=== PATIENT | male | born 1985 | race Caucasian/White ===

== ENCOUNTER 2018-11-19 15:43 | Emergency (ER) | payer OTHER ==
[~2018-11-19] VITALS: Ht 180.3 cm; Wt 65.8 kg
[2018-11-19] MEDS ORDERED: DELTASONE20 MG PO (17:47)
[2018-11-19] MEDS ORDERED: ZITHROMAX250 MG PO (17:47)
[2018-11-19] MEDS ORDERED: VENTOLIN HFA18 GM INH (17:47)
== END 2018-11-19 18:03 | disposition home or self-care (01) ==
LOC: ED 15:43
DX: J45.909 Unspecified asthma, uncomplicated (principal)
CPT/HCPCS: 71045; 87502; 94640; 99283-25; J7512

== ENCOUNTER 2019-06-20 14:17 | Emergency (ER) | payer OTHER ==
[~2019-06-20] VITALS: Ht 177.8 cm; Wt 68.0 kg
[~2019-06-20 14:17] MED LIST: DELTASONE20 MG PO; VENTOLIN HFA18 GM INH; ZITHROMAX250 MG PO
--- OUTSIDE RECORDS SUMMARY | 2019-06-20 14:20 | XMS ---
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 Calli has no Care Guidelines for this patient. Jhonathan VISIT COUNT (12 MO.) 1 [facility] [place] [address] [place] TOTAL 3 NOTE: Visits indicate total known visits. ED/UCC VISIT TRACKING (12 MO.) 06/20/2019 14:18 [facility] [place] TYPE: Emergency COMPLAINT: - RECTAL PAIN 03/16/2019 21:56 [facility] TYPE: Emergency COMPLAINT: - RECTAL PAIN 11/19/2018 15:[address] [facility] [place] TYPE: Emergency COMPLAINT: - COUGH/FEVER/VOMITING DIAGNOSES: - Cough - Unspecified asthma, uncomplicated INPATIENT VISIT TRACKING (12 MO.) No inpatient visits to display in this time frame [email or web address]
[2019-06-20] MEDS ORDERED: NORCO 5-325 TA1 EACH PO (14:57)
[2019-06-20] MEDS ORDERED: KEFLEX500 MG PO (14:57)
== END 2019-06-20 15:15 | disposition home or self-care (01) ==
LOC: ED 14:17
DX: K62.89 Other specified diseases of anus and rectum (principal); F17.200 Nicotine dependence, unspecified, uncomplicated
CPT/HCPCS: 99283

== ENCOUNTER 2019-06-22 16:14 | Observation (INO) | payer OTHER ==
[~2019-06-22] VITALS: Ht 177.8 cm; Wt 67.9 kg
[~2019-06-22 16:14] MED LIST changes: +KEFLEX500 MG PO; +NORCO 5-325 TA1 EACH PO
--- OUTSIDE RECORDS SUMMARY | 2019-06-22 16:16 | XMS ---
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 Calli has no Care Guidelines for this patient. Jhonathan [facility] [place] TOTAL 4 NOTE: Visits indicate total known visits. ED/UCC VISIT TRACKING (12 MO.) 06/22/2019 16:14 [facility] [place] TYPE: Emergency COMPLAINT: - RECTAL PAIN 06/20/2019 14:18 [facility] [place] TYPE: Emergency COMPLAINT: - RECTAL PAIN 03/16/2019 21:56 [facility] TYPE: Emergency COMPLAINT: - RECTAL PAIN 11/19/2018 15:44 [facility] [place] TYPE: Emergency COMPLAINT: - COUGH/FEVER/VOMITING DIAGNOSES: - Cough - Unspecified asthma, uncomplicated INPATIENT VISIT TRACKING (12 MO.) No inpatient visits to display in this time frame [email or web address]
--- NOTE | 2019-06-22 20:40 | NUR ---
PT ADMITTED TO ROOM 125 FROM ED, WITH LEAH RECTAL ABSCESS. A/O, ROOM AIR, ABLE TO MOVE SELF OVER FROM STRETCHER TO BED, HOWEVER, EXTREMELY PAINFUL. HAS BEEN TAKING ABX FOR THIS SINCE COMING TO ED PREVIOUSLY TO THIS ADMISSION. PLAN FOR DR CONN TO TAKE TO SURGERY IN AM.
--- NOTE | 2019-06-22 20:53 | NUR ---
MED WITH 4 MG MORPHINE FOR 1010 PAIN. REQUESTED COFFEE AND SOMETHING TO EAT. CALL LIGHT WITHIN REACH.
--- NOTE | 2019-06-22 22:54 | NUR ---
PT ASSESSMENT COMPLETE. PT RATES PAIN 10/10 IN GLUTEAL AREA. PRN PAIN MEDICATIONS ADMINISTERED. IVF INFUSING WNL ORDERED, FLUSHED WNL. RECTAL ABCESS INTACT, REDDENED. PT UP TO RESTROOM, SBA FOR SITZ BATH. SHAKIRA BASILIO REMAINS IN ROOM. INSTRUCTED TO USE CALL LIGHT FOR ASSISTANCE.
--- NOTE | 2019-06-23 00:05 | NUR ---
PT REQUESTED TO GO TO HIS CAR TO GET SOME PAPERS OUT OF IT. HE IS AWARE HE IS UNABLE TO DO SO. ASKED IF HE LET SOMEONE KNOW HE WAS HERE, HE SAID YES, BUT THEY DIDN'T RESPOND. HE STATED PAIN WAS BETTER, WAS WATCHING CARTOONS, APPEARED MORE RELAXED. SUGGESTED HE TRY TO SLEEP. ALL WATER AND FOOD REMOVED. PT AWARE.
--- NOTE | 2019-06-23 00:31 | NUR ---
CHECKED ON PT. LYING IN BED ON LEFT SIDE. EYES CLOSED, VISIBLE CHEST RISE, APPEARS TO BE SLEEPING. LIGHTS OFF IN ROOM.
--- NOTE | 2019-06-23 02:45 | NUR ---
PT ASSESSMENT COMPLETE. PT AWAKE LYING IN BED. RATES PAIN 8/10 "PRESSURE IN RECTAL AREA THAT FEELS LIKE I NEED TO POOP THEN IT REALLY HURTS". PRN PAIN MEDICATION ADMINISTERED. IV ANTIBIOTIC INFUSING WNL ORDERED. VSS. SCDS ON. CALL LIGHT IN REACH. NPO.
--- NOTE | 2019-06-23 05:45 | NUR ---
PT RESTING IN BED, STATES PAIN IS 6/10 IN RECTAL AREA. PRN PAIN MEDICATION ADMINISTERED. VSS. URINAL EMPTIED. IVF INFUSING WNL ORDERED. SURGICAL WIPES PROVIDED, PT EDUCATION PROVIDED. CALL LIGHT IN REACH.
--- NOTE | 2019-06-23 06:08 | NUR ---
PT C/O PAIN IN LEAH RECTAL AREA THROUGHOUT SHIFT. HARD, TENDER, REDDENED AREA, SKIN INTACT NOTED ON LEFT INNER GLUTEUS. SITZ BATH THIS SHIFT. PRN PAIN MEDICATION THROUGHOUT SHIFT. NPO AT MIDNIGHT. IVF AND IV ANTIBIOTICS INFUSING ORDERED. SCDS IN PLACE.
--- NOTE | 2019-06-23 06:27 | NUR ---
CALL LIGHT ANSWERED, PT C/O 07/16 PAIN IN RECTAL AREA, PRN TORADOL IV ADMINISTERED. SURGICAL WIPE DOWN COMPLETE. CALL LIGHT IN REACH.
--- NOTE | 2019-06-23 06:38 | NUR ---
PT OFF FLOOR WITH SURGERY AMAN ROBLERO.
--- NOTE | 2019-06-23 07:35 | NUR ---
BEDSIDE REPORT...PT OFF UNIT IN SURGERY DEPT AT THIS TIME.
--- NOTE | 2019-06-23 08:12 | NUR ---
06/23/19 0812 Gina Hobson 0805-PATIENT ARRIVED TO PACU ON 6L MASK NONAROUSABLE ORAL AIRWAY IN PLACE. RN MAINTAING JAW THRUST FOR AIRWAY. SR 0811-PATIENT MAINTAINING OWN AIRWAY 6L MASK. MOVED RIGHT ARM TO FACE DOES NOT FOLLOW COMMANDS EYES CLOSED.
--- NOTE | 2019-06-23 08:40 | NUR ---
pt arrived to room 125 at this time. he is alert but drowsy, he reports feeling returning on transfer from surgery stretcher. he reprots he cant eat anything for a while after waking so will hold abx for now
--- NOTE | 2019-06-23 09:59 | NUR ---
PT SITTING UP IN BED ALERT TALKING WITH CATHIE FROM PHARMACY.
--- NOTE | 2019-06-23 10:08 | NUR ---
PT REPORTS PAIN IS 5/10, MOTRIN GIVEN PO PRN AT THIS TIME 600MG. PT GIVEN STACK WITH MEDS TO PREVENT GI UPSET. DISCUSSED PLAN TO WALK AND SITZ BATH
--- NOTE | 2019-06-23 10:19 | NUR ---
MED REC COMPLETE
--- NOTE | 2019-06-23 11:33 | NUR ---
PT UP AMBULATING IN HALLS INDEPENDENTLY. DISCUSSED GOALS FOR DISCHARGE.
[2019-06-23] MEDS ORDERED: IBUPROFEN600 MG PO (14:22)
[2019-06-23] MEDS ORDERED: TYLENOL EXTRA500 MG PO (14:22)
[2019-06-23] MEDS ORDERED: AMOX TR-K CLV1 EACH PO (14:22)
--- NOTE | 2019-06-23 14:32 | NUR ---
PT AMBULATING IN HALLS, IV REMOVED WNL, TIP INTACT.
--- NOTE | 2019-06-23 14:40 | NUR ---
DISCHARGE EDUCATION GIVEN DSICUSSED MEDICATIONS LAST DOSE NEXT DOSE, NEEDS TO TAKE DOSE TONIGHT WITH DINNER. WOUND CARE INSTRUCTIONS GIVEN, SITZ BATH SENT HOME. PT REPORTS PAIN WELL MANAGED AT THIS TIME. FOLLOW UP IN 2 WEEKS, 'S OFFICE TO CALL PT WITH APPOINTMENT TIME.
--- NOTE | 2019-06-23 20:01 | HP ---
[facility] [address], [place] [address] Signed ADMISSION DATE: 06/22/2019 TIME: 8 p.m. PROBLEM: Right perirectal abscess. HISTORY OF PRESENT ILLNESS: This 33-year-old man was seen in the emergency room approximately [address] Gates with some perianal pain on the right side. Digital examination by Dr. Gtaes, upon discussion with Dr. Gates, suggested a firm knot in the area, but no obvious fluctuance proper. He was prescribed antibiotic Keflex and advised to return to the emergency room if symptoms did not improve. He returned unfortunately in the evening with marked worsening of his pain. Examination has shown a right perirectal abscess. Notably, the patient drank a fair amount of fluids immediately prior to presenting to the emergency room. He is admitted at this time for further evaluation and care. PAST MEDICAL HISTORY: Relatively unremarkable. He has no longstanding medical problems of any sort. ALLERGIES: Denies allergies to any medications. SOCIAL HISTORY: He lives in [place]. 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 He formally had a girlfriend locally, but now is independent and alone. REVIEW OF SYSTEMS: He denies any fever or chills. His appetite has been poor. He has not had solid food since yesterday. PHYSICAL EXAMINATION: GENERAL: Relatively thin, white appearing man, who does not look systemically toxic. NECK: Trachea is midline. CHEST: Shows normal respiratory excursion. Pulses regular. RECTUM: Examination of the perirectal area in the lateral position shows a sizable right lateral perirectal abscess with an induration. There is no sign of crepitus. Electronically Signed By: TOMAS CONN MD 06/23/192000 PATIENT NAME: LOUIE SMALLWOOD HISTORY AND PHYSICAL DATE OF : 89 REPORT #: [id number] PHYSICIAN: TOMAS CONN MD PCP: NO PRIMARY CARE PHYSICIAN REPORT IS CONFIDENTIAL AND NOT TO BE RELEASED WITHOUT AUTHORIZATION [facility] [address], [place] [address] Signed EXTREMITIES: Show no clubbing, cyanosis, or edema. LAB STUDIES: Not done at this time. ASSESSMENT: The patient has a large perirectal abscess for which drainage would be appropriate. The size of the abscess, local tenderness, and so forth would preclude drainage under local, I am afraid at this time. I reviewed with Mira Heredia CRNA, the school patrol, the advisability of anesthetic given his stomach. It is possible that the operation could be delayed possibly to as early as early a.m. to allow for a more adequate and safe anesthetic for more thorough drainage. If things should worsen in the evening, then certainly we could change our plan and later in the night provide incision and drainage. In the meantime, we will provide IV fluids, parenteral pain medication, IV antibiotics, and so on. The patient is agreeable to this approach. MD NUBIA Villalpando/LAURA /[id number] cc: Bravo Gates MD Copies: BRAVO GATES MD ~ Electronically Signed By: TOMAS CONN MD 06/23/19 2001 PATIENT NAME: LOUIE SMALLWOOD RO HISTORY AND PHYSICAL DATE OF : [birth year] REPORT #: [id number] PHYSICIAN: TOMAS CONN MD PCP: NO PRIMARY CARE PHYSICIAN REPORT IS CONFIDENTIAL AND NOT TO BE RELEASED WITHOUT AUTHORIZATION
--- NOTE | 2019-06-23 20:01 | OR ---
[facility] [address], [place] [address] Signed DATE OF OPERATION: 06/23/2019 SURGEON: Tomas Conn MD PREOPERATIVE DIAGNOSIS: Left perirectal abscess. POSTOPERATIVE DIAGNOSIS: Left perirectal abscess. PROCEDURES: 1. Incision and drainage of left perirectal abscess. 2. Placement of yellow vessel loop seton drain. ANESTHESIA: General endotracheal; Marcel Mindy, THROUGH OPERATOR, and local 10 mL of 0.25% Marcaine with epinephrine. INDICATION: This 33-year-old man presented late yesterday with several days of increasing left perianal pain. He has been seen in the emergency room three days ago by Dr. Bravo Gates and examination showed an indurated area without fluctuance. Antibiotic therapy was unsuccessful. He returned to the emergency room yesterday evening and found to have a really large left perirectal abscess. He had just eaten prior to coming to the hospital on that basis, was admitted, given intravenous fluids, and on the 1st early a.m. case today is to undergo exam under anesthesia, incision and drainage of the abscess. He understands the risks of bleeding, infection, anorectal dysfunction, other unforeseen complications, and wished to proceed. FINDINGS: Thick purulent material was noted from the left anterolateral aspect of a sizable perirectal abscess. The abscess appeared to be relatively shallow, was not deep and was not an ischiorectal abscess proper. Incision and drainage was accomplished fully and a yellow vessel loop seton was placed as well. DESCRIPTION OF PROCEDURE: The patient was brought to the operating room, given a general endotracheal anesthetic. Preoperative antibiotic cefoxitin had been given. Sequential compression device stockings used and heparin subcutaneously administered. After satisfactory anesthesia, he was placed in the prone jackknife position. The buttocks were taped apart. The Electronically Signed By: TOMAS CONN MD 06/23/192000 PATIENT NAME: LOUIE SMALLWOOD OPERATIVE REPORT DATE OF : [birth year] REPORT #: [id number] PHYSICIAN: TOMAS CONN MD PCP: NO PRIMARY CARE PHYSICIAN REPORT IS CONFIDENTIAL AND NOT TO BE RELEASED WITHOUT AUTHORIZATION [facility] [address], [place] [address] Signed perianal area was clipped. Preparation was undertaken with a DuraPrep solution. After sterile draping, examination was undertaken showing a fluctuant area in the anterolateral aspect on the left side. With an 11 blade, an incision was made and egress of copious amounts of purulent material was noted. Gram stain and cultures were obtained. The abscess cavity was probed with a hemostat. Loculations broken down. The hemostat was passed towards the anal canal where the origin at the dentate line was identified. A vessel loop was tied of seton on this area. Elevating the seton, irrigation was undertaken of the abscess cavity. Interrogation laterally was undertaken showing no sign of penetration to the deeper buttocks tissue. Copious irrigation was undertaken. Once cleared, 10 mL of 0.25% Marcaine with epinephrine was injected locally. Hemostasis was considered complete. A peripad was applied. He was returned to the supine position and was extubated on the stretcher. Blood loss was minimal. Tomas Conn MD JM/MODL /[id number] cc: Bravo Gates MD Copies: BRAVO GATES MD ~ Electronically Signed By: TOMAS CONN MD 06/23/192000 PATIENT NAME: LOUIE SMALLWOOD OPERATIVE REPORT DATE OF : [birth year] REPORT #: [id number] PHYSICIAN: TOMAS CONN MD PCP: NO PRIMARY CARE PHYSICIAN REPORT IS CONFIDENTIAL AND NOT TO BE RELEASED WITHOUT AUTHORIZATION
== END 2019-06-23 14:42 | disposition home or self-care (01) ==
LOC: ED 16:14 → MS 19:46
PROVIDERS: ADMIT Surgery
PROC: 0D9P0ZZ Drainage of Rectum, Open Approach (ICD-10-PCS; principal; 2019-06-23 07:00)
DX: K61.1 Rectal abscess (principal); F17.210 Nicotine dependence, cigarettes, uncomplicated
CPT/HCPCS: 00902; 80053; 82247; 82465; 83615; 84100; 84478; 84550; 85025; 96365; 96366; 96372; 96375; 96376; 99284-25; G0378; J0694; J1100; J1644; J1885; J2270; J2405; J2704; J3010; J7060; J7120; J7121